=== PATIENT | female | born 1970 | race American Indian/Alaskan Native ===

== ENCOUNTER 2022-03-09 13:19 | Emergency (ER) | payer SELFPAY ==
[2022-03-09 13:31] VITALS: BP 116/60
[2022-03-09 14:32] LABS: Basophils % (Auto) 0.4 % (0.0-1.8); Eosinophils # (Auto) 0.2 K/mm3 (0.0-0.4); Hematocrit 38.2 % (30.3-42.9); Hemoglobin 12.4 gm/dl (10.1-14.3); Lymphocytes # (Auto) 2.1 K/mm3 (1.2-5.4); Lymphocytes % (Auto) 21.4 % (13.4-35.0); Mean Corpuscular HGB Conc 32 % (30-34); Mean Corpuscular Volume 85 fl (79-97); Monocytes # (Auto) 0.9 K/mm3 (0.0-0.8); Monocytes % (Auto) 9.3 % (0.0-7.3); Platelet Count 253 K/mm3 (140-440); Red Cell Distribution Width 15.5 % (13.2-15.2)
[2022-03-09 14:39] LABS: INR 0.89 (0.87-1.13)
[2022-03-09 14:40] LABS: Partial Thromboplastin Time 31.2 Sec. (24.2-36.6)
--- NOTE | 2022-03-09 14:44 | XRay Report ---
CHEST 2 VIEWS INDICATION / CLINICAL INFORMATION: Chest Pain. COMPARISON: None available. FINDINGS: SUPPORT DEVICES: None. HEART / MEDIASTINUM: No significant abnormality. LUNGS / PLEURA: No significant pulmonary or pleural abnormality. No pneumothorax. ADDITIONAL FINDINGS: No significant additional findings. IMPRESSION: 1. No acute findings. Signer Name: Khoi Davalos Jr, MD Signed: 03/09/2022 2:40 PM Workstation Name: [id number]
[2022-03-09 15:10] LABS: Alanine Aminotransferase 16 units/L (7-56); Albumin 4.4 g/dL (3.9-5); BUN/Creatinine Ratio 17; Blood Urea Nitrogen 15 mg/dL (7-17); Calcium 9.7 mg/dL (8.4-10.2); Hemolysis Index 1
--- NOTE | 2022-03-11 17:24 | Electrocardiograph Report ---
[facility] Test Date: 2022-03-09 Test Time: 13:43:37 Pat Name: MEHRDAD LINDQUIST Department: Room: Gender: F Email Marketing Executive: NURSE : 1970 Requested By: ED DOC Order Number: [id number] Reading MD: Jozef Bryson Measurements Intervals [place] Rate: 67 P: 121 W[place]: 148 QRS: 31 QRSD: 85 T: 66 QT: 376 QTc: 396 Interpretive Statements Sinus rhythm No previous ECG available for comparison Electronically Signed On 03-11-2022 17:24:02 EDT by Jozef Bryson
== END 2022-03-09 16:00 | disposition left against medical advice (07) ==
LOC: ED 13:19
DX: R07.89 Other chest pain (principal); Z53.21 Procedure and treatment not carried out due to patient leaving prior to being seen by health care provider
CPT/HCPCS: 36415; 71046; 80053; 84484; 85025; 85610; 85730; 93005